=== PATIENT | male | born 1995 | race Caucasian/White ===

== ENCOUNTER 2018-05-28 08:45 | Emergency (ER) | payer SELFPAY ==
--- NOTE | 2018-05-28 09:09 | EDPHYS ---
Physician Documentation [facility] Name: Kel Avalos Age: 22 yrs Sex: Male : 1995 Arrival Date: 05/28/2018 Time: 08:49 Bed 16 Private MD: None, None ED Physician Ernesto Johnson HPI: 05/28 09:04 This 22 yrs old Male presents to ER via Ambulatory with complaints of Abscess.jr8 09:04 The patient presents with cellulitis of the left arm. Onset: The symptoms/episode jr8 began/occurred gradually, 2 day(s) ago, and became worse and became persistent. Possible cause(s): unknown. Associated signs and symptoms: The patient has no apparent associated signs or symptoms. Modifying factors: the symptoms are alleviated by nothing, the symptoms are aggravated by pressure, squeezing the lesion and expressing the contents, touching. Severity of symptoms: At their worst the symptoms were moderate, in the emergency department the symptoms are unchanged. The patient has experienced a previous episode. The patient has not recently seen a physician. Historical: - Allergies: 08:58 Advil; sg 08:58 Aleve; sg - Home Meds: 08:58 metoprolol tartrate 50 mg Oral tab 1 tab once daily [Active]; sg - PMHx: 08:58 Hypertension; sg - PSHx: 08:58 None; sg - Immunization history:: Adult Immunizations not up to date, Last tetanus immunization: unknown. - Social history:: Smoking status: Patient/guardian denies using tobacco. - Ebola Screening: : Patient negative for fever greater than or equal to 101.5 degrees Fahrenheit, and additional compatible Ebola Virus Disease symptoms Patient denies exposure to infectious person Patient denies travel to an Ebola-affected area in the 21 days before illness onset No symptoms or risks identified at this time. ROS: 09:04 Eyes: Negative for injury, pain, redness, and discharge, ENT: Negative for injury, jr8 pain, and discharge, Neck: Negative for injury, pain, and swelling, Cardiovascular: Negative for chest pain, palpitations, and edema, Respiratory: Negative for shortness of breath, cough, wheezing, and pleuritic chest pain, Abdomen/GI: Negative for abdominal pain, nausea, vomiting, diarrhea, and constipation, Back: Negative for injury and pain, MS/Extremity: Negative for injury and deformity, Neuro: Negative for headache, weakness, numbness, tingling, and seizure. 09:04 Skin: Positive for cellulitis, swelling, of the left arm. Exam: 09:04 Constitutional: This is a well developed, well nourished patient who is awake, alert, jr8 and in no acute distress. Cardiovascular: Regular rate and rhythm with a normal S1 and S2. No gallops, murmurs, or rubs. Normal PMI, no JVD. No pulse deficits. Respiratory: Lungs have equal breath sounds bilaterally, clear to auscultation and percussion. No rales, rhonchi or wheezes noted. No increased work of breathing, no retractions or nasal flaring. MS/ Extremity: Pulses equal, no cyanosis. Neurovascular intact. Full, normal range of motion. Neuro: Awake and alert, GCS 15, oriented to person, place, time, and situation. Cranial nerves II-XII grossly intact. Motor strength 5/5 in all extremities. Sensory grossly intact. Cerebellar exam normal. Normal gait. 09:04 Skin: Patient has approximately 7.5 cm of well demarcated erythema to left triceps region. Of that there is approximately 4 cm of induration with small necrotic center. No active draining or fluctuance . Vital Signs: 08:58 BP 140 / 97; Pulse 83; Resp 17 S; Temp 98.1(TE); Pulse Ox 98% on R/A; Weight 145.15 kg sg (R); Height 6 ft. 3 in. (190.50 cm) (R); Pain 4/10; 08:58 Body Mass Index 40.00 (145.15 kg, 190.50 cm) MDM: 09:00 Patient medically screened. [facility] 09:04 Data reviewed: vital signs, nurses notes, lab test result(s), and as a result, I will [facility] discharge patient. Data interpreted: Pulse oximetry: on room air is 98 %. Interpretation: normal. Counseling: I had a detailed discussion with the patient and/or guardian regarding: the historical points, exam findings, and any diagnostic results supporting the discharge/admit diagnosis, lab results, the need for outpatient follow up, a family practitioner, to return to the emergency department if symptoms worsen or persist or if there are any questions or concerns that arise at home. ED course: Discussed with patient that if the infection were to spread or if he were to have fevers, vomiting to come back for reevaluation and possible admission . 05/28 09:04 Order name: Wound Culture jr8 Administered Medications: No medications were administered Disposition: 14:44 Co-signature as Attending Physician, Ernesto Johnson MD I agree with the assessment and kdr plan of care. Disposition: 05/28/18 09:09 Discharged to Home. Impression: Cellulitis of left upper limb. - Condition is Stable. - Discharge Instructions: Cellulitis, Adult. - Prescriptions for Clindamycin HCl 300 mg Oral Capsule - take 1 capsule by ORAL route every 6 hours for 10 days; 40 capsule. Bactrim DS 800- 160 mg Oral Tablet - take 1 tablet by ORAL route every 12 hours for 10 days; 20 tablet. - Medication Reconciliation Form, Thank You Letter, Antibiotic Education, Prescription Opioid Use form. - Follow up: Private Physician; When: 5 - 6 days; Reason: Recheck today's complaints, Continuance of care, Re-evaluation by your physician. - Problem is new. - Symptoms have improved. Signatures: Dispatcher [employer] EDMS Sim Avelar, RN RN Ernesto Johnson MD MD [facility] Nito Chawla PA PA jr8 Jennifer Shafer RN RN ph Corrections: (The following items were deleted from the chart) 09:36 09:09 05/28/2018 09:09 Discharged to Home. Impression: Cellulitis of left upper limb. ph Condition is Stable. Forms are Medication Reconciliation Form, Thank You Letter, Antibiotic Education, Prescription Opioid Use. Follow up: Private Physician; When: 5 - 6 days; Reason: Recheck today's complaints, Continuance of care, Re-evaluation by your physician. Problem is new. Symptoms have improved. jr8
--- NOTE | 2018-05-28 09:09 | ER ---
Nurse's Notes [facility] Name: Kel Avalos Age: 22 yrs Sex: Male : 1995 Arrival Date: 05/28/2018 Time: 08:49 Bed 16 Private MD: None, None Diagnosis: Cellulitis of left upper limb Presentation: 05/28 08:56 Presenting complaint: Patient states: Thought a spider bit me on the back of my left sg arm, it had a bubble on it so i mashed it to get the stuff out. pt reports having had Staph infection prior to this, was lanced, and packed and had to take abx. Denies Fever, N/V/D. Transition of care: patient was not received from another setting of care. Onset of symptoms was May 28, 2018. Risk Assessment: Do you want to hurt yourself or someone else? Patient reports no desire to harm self or others. Initial Sepsis Screen: Does the patient meet any 2 criteria? No. Patient's initial sepsis screen is negative. Does the patient have a suspected source of infection? Yes: Skin breakdown/wound. Care prior to arrival: None. 08:56 Method Of Arrival: Ambulatory sg 08:56 Acuity: BRETT 4 sg Historical: - Allergies: 08:58 Advil; sg 08:58 Aleve; sg - Home Meds: 08:58 metoprolol tartrate 50 mg Oral tab 1 tab once daily [Active]; sg - PMHx: 08:58 Hypertension; sg - PSHx: 08:58 None; sg - Immunization history:: Adult Immunizations not up to date, Last tetanus immunization: unknown. - Social history:: Smoking status: Patient/guardian denies using tobacco. - Ebola Screening: : Patient negative for fever greater than or equal to 101.5 degrees Fahrenheit, and additional compatible Ebola Virus Disease symptoms Patient denies exposure to infectious person Patient denies travel to an Ebola-affected area in the 21 days before illness onset No symptoms or risks identified at this time. Screenin:00 Abuse screen: Denies threats or abuse. Denies injuries from another. Nutritional ph screening: No deficits noted. Tuberculosis screening: No symptoms or risk factors identified. Fall Risk None identified. Assessment: 09:00 General: Appears in no apparent distress. comfortable, obese, well groomed, Behavior is ph calm, cooperative, appropriate for age, Denies fever, feeling ill. Pain: Complains of pain in left tricep. Neuro: Level of Consciousness is awake, alert, obeys commands, Oriented to person, place, time, situation. Cardiovascular: Capillary refill < 3 seconds Patient's skin is warm and dry. Respiratory: Airway is patent Respiratory effort is even, unlabored, Respiratory pattern is regular, symmetrical. GI: No signs and/or symptoms were reported involving the gastrointestinal system. Derm: Skin is healthy with good turgor, Skin is pink, warm \T\ dry. Abscess located on left tricep is nickel sized, is hot to touch, is red, is raised, was lanced by patient prior to arrival. Musculoskeletal: Circulation, motion, and sensation intact. Range of motion: intact in all extremities. Vital Signs: 08:58 BP 140 / 97; Pulse 83; Resp 17 S; Temp 98.1(TE); Pulse Ox 98% on R/A; Weight 145.15 kg sg (R); Height 6 ft. 3 in. (190.50 cm) (R); Pain 4/10; 08:58 Body Mass Index 40.00 (145.15 kg, 190.50 cm) sg ED Course: 08:49 Patient arrived in ED. sb2 08:50 None, None is Private Physician. sb2 08:56 Jennifer Shafer, RN is Primary Nurse. ph 08:57 Triage completed. sg 08:57 Arm band placed on. sg 08:59 Nito Chawla PA is PHCP. jr8 08:59 Ernesto Johnson MD is Attending Physician. jr8 09:00 Patient has correct armband on for positive identification. Bed in low position. Call ph light in reach. Side rails up X 1. Pulse ox on. NIBP on. 09:30 No provider procedures requiring assistance completed. Patient did not have IV access ph during this emergency room visit. Administered Medications: No medications were administered Outcome: 09:09 Discharge ordered by . jr8 09:36 Patient left the ED. ph 09:36 Discharged to home ambulatory. ph 09:36 Condition: good 09:36 Discharge instructions given to patient, Instructed on discharge instructions, follow up and referral plans. medication usage, Demonstrated understanding of instructions, follow-up care, medications, Prescriptions given X 2. Addendum: 05/31/2018 08:48 Addendum: Culture Results: Positive wound culture. No further action required. Bacteria a a5 sensitive to prescribed antibiotic. Signatures: Sim Avelar, RN RN sg Chen Campos RN RN aa5 Nito Chawla PA PA jr8 Jennifer Shafer RN RN ph Merary Giron sb2
== END 2018-05-28 09:36 | disposition home or self-care (01) ==
LOC: ER 08:45
DX: L03.114 Cellulitis of left upper limb (principal); I10 Essential (primary) hypertension; Z88.6 Allergy status to analgesic agent
CPT/HCPCS: 87070; 87077; 87186; 87205; 99283

== ENCOUNTER 2018-05-30 16:19 | Emergency (ER) | payer SELFPAY ==
[2018-05-30] MEDS ORDERED: LIDOCAINE 1% MPF 5 ML VIAL ONE (16:53)
[2018-05-30 17:20] LABS: Absolute Lymphocytes (CBC) 2.2 K/uL (0.7-4.9); Absolute Monocytes 1.3 K/uL (0.1-1.3); Absolute Neutrophil 9.5 K/uL (1.8-8.0); Basophils % 0.3 % (0-1.3); Eosinophils % 0.7 % (0-4.4); Hematocrit 46.6 % (39.6-49.0); Lymphocytes % 16.5 % (15.3-44.8); Monocytes % 9.7 % (3.3-12.3); RBC Red Blood Cell Count 5.11 M/uL (4.33-5.43)
[2018-05-30 17:47] LABS: Albumin 4.3 g/dL (3.4-5.0); Bilirubin Total 0.8 mg/dL (0.2-1.0); Potassium 3.6 mmol/L (3.5-5.1); Protein, Total 8.5 g/dL (6.4-8.2)
[2018-05-30] MEDS ORDERED: BUPIVACAINE 0.5% PF 10 ML VIAL ONE (18:36)
--- NOTE | 2018-05-30 19:23 | EDPHYS ---
Physician Documentation [facility] Name: Kel Avalos Age: 22 yrs Sex: Male : 1995 Arrival Date: 05/30/2018 Time: 16:22 Bed 15 Private MD: None, None ED Physician Lobito Valiente HPI: 05/30 16:47 This 22 yrs old Male presents to ER via Ambulatory with complaints of Abscess.jmm 16:47 The patient presents with an abscess of the left arm and left tricep. Onset: The jmm symptoms/episode began/occurred gradually, 4 day(s) ago. Possible cause(s): unknown. Associated signs and symptoms: Pertinent positives: fever, swelling. This is a 22 year old male with a history of HTN that presents to the ED with left triceps pain and swelling approx 4 days ago. Patient states he had fever this yesterday. Patient is currently taking cipro and bactrim beginning 2 days ago. Patient states having decreased swelling but increased drainage from the wound. . Historical: - Allergies: 16:25 Advil; la1 16:25 Aleve; la1 - Home Meds: 16:40 metoprolol tartrate 50 mg Oral tab 1 tab once daily [Active]; jb4 - PMHx: 16:25 Hypertension; la1 - PSHx: 16:40 None; jb4 - Immunization history:: Adult Immunizations up to date. - Social history:: Smoking status: Patient/guardian denies using tobacco. - Ebola Screening: : No symptoms or risks identified at this time. ROS: 16:47 Constitutional: Negative for fever, chills, and weight loss, Cardiovascular: Negative jmm for chest pain, palpitations, and edema, Respiratory: Negative for shortness of breath, cough, wheezing, and pleuritic chest pain. 16:47 Skin: Positive for erythema, swelling. 16:47 All other systems are negative. Exam: 16:47 Constitutional: This is a well developed, well nourished patient who is awake, alert, jmm and in no acute distress. Head/Face: atraumatic. Chest/axilla: Normal chest wall appearance and motion. Cardiovascular: Regular rate and rhythm. No edema appreciated Respiratory: Normal respirations, no respiratory distress appreciated 16:47 Musculoskeletal/extremity: FROM appreciated to the left elbow, compartments soft, NVI. 16:47 Skin: Appearance: swelling. 16:47 Skin: swelling is appreciated to the left triceps region, TTP with surrounding erythema. 16:47 Neuro: Orientation: is normal, Mentation: is normal, Memory: is normal, Gait: is steady. 16:47 Psych: Behavior/mood is pleasant, cooperative. Vital Signs: 16:26 BP 130 / 97; Pulse 97; Resp 16; Temp 98.3(TE); Pulse Ox 97% on R/A; Weight 145.15 kg; la1 Height 6 ft. 7 in. (200.66 cm); 16:41 BP 165 / 99; Pulse 88; Resp 16; Pulse Ox 100% on R/A; Pain 0/10; jb4 18:38 BP 121 / 73; Pulse 83; Resp 18; Pulse Ox 100% on R/A; jb4 19:20 BP 128 / 72; Pulse 80; Resp 16; Pulse Ox 98% on R/A; ao 16:26 Body Mass Index 36.05 (145.15 kg, 200.66 cm) [facility] Procedures: 19:00 I \T\ D: Incision and drainage was performed for an abscess of the left tricep Prepped jmm with Betadine, Anesthetized with 5 ml's 1% Lidocaine. Incised with #11 blade. Drained large amount purulent fluid. Packed with sterile gauze, Dressing: sterile 4x4 gauze, the patient tolerated the procedure well. MDM: 16:44 Patient medically screened. [facility] 19:00 ED course: Patient is alert and non toxic in the ED. patient reports decreased jmm swelling. Patient given follow up for surgery reevaluation. patient given return precautions. Patient understood and agrees with the plan of care. . 19:20 Data reviewed: vital signs, nurses notes. Counseling: I had a detailed discussion with [facility] the patient and/or guardian regarding: the historical points, exam findings, and any diagnostic results supporting the discharge/admit diagnosis, the need for outpatient follow up, to return to the emergency department if symptoms worsen or persist or if there are any questions or concerns that arise at home. 05/30 16:45 Order name: CBC with Diff; Complete Time: 17:55 [facility] 05/30 16:45 Order name: CMP; Complete Time: 17:55 [facility] 05/30 16:45 Order name: Blood Culture Adult (2) [facility] 05/30 16:45 Order name: Procalcitonin; Complete Time: 18:46 [facility] 05/30 16:45 Order name: Saline Lock; Complete Time: 17:11 [facility] Administered Medications: 18:25 Drug: Lidocaine (1 %) 20 ml Volume: 20 ml; Route: Infiltration; jb4 19:25 Follow up: Response: No adverse reaction ao 18:36 Drug: Marcaine (0.5 %) 10 ml Volume: 10 ml; Route: Infiltration; jb4 19:24 Follow up: Response: No adverse reaction ao Disposition: 05/31 15:52 Co-signature as Attending Physician, Lobito Valiente MD. Disposition: 05/30/18 19:22 Discharged to Home. Impression: Abscess, Cellulitis. - Condition is Stable. - Discharge Instructions: Skin Abscess, Incision and Drainage, Care After. - Prescriptions for Ultracet 37.5- 325 mg Oral Tablet - take 2 tablet by ORAL route every 6 hours - for up to 5 days; do not exceed 8 tablets per day.; 20 tablet. - Work release form, Medication Reconciliation Form, Thank You Letter, Antibiotic Education, Prescription Opioid Use form. - Follow up: Grant Andrade MD; When: 2 - 3 days; Reason: Recheck today's complaints, Continuance of care, Re-evaluation by your physician. Signatures: Dispatcher [employer] EDMS Leland Pineda PA PA [facility] Shai Coates RN RN la1 Jose Enrique Camarena RN RN ao Bryson, James, RN RN jb4 Lobito Valiente MD MD Corrections: (The following items were deleted from the chart) 05/30 19:36 19:22 05/30/2018 19:22 Discharged to Home. Impression: Abscess; Cellulitis. Condition ao is Stable. Forms are Medication Reconciliation Form, Thank You Letter, Antibiotic Education, Prescription Opioid Use. Follow up: Grant Andrade; When: 2 - 3 days; Reason: Recheck today's complaints, Continuance of care, Re-evaluation by your physician. [facility] 21:09 16:47 This is a 22 year old male with a history of HTN that presents to the ED with [facility] left triceps pain and swelling approx 4 days ago. Patient states he had fever this yesterday. Patient is currently taking cipro and bactrim beginning 2 days ago. Patient states developing increased swelling. . [facility]
--- NOTE | 2018-05-30 19:23 | ER ---
Nurse's Notes [facility] Name: Kel Avalos Age: 22 yrs Sex: Male : 1995 Arrival Date: 05/30/2018 Time: 16:22 Bed 15 Private MD: None, None Diagnosis: Abscess;Cellulitis Presentation: 05/30 16:25 Presenting complaint: Patient states: abscess on LUE since Saturday, seen here given ABX, la1 still getting worse. Transition of care: patient was not received from another setting of care. Onset of symptoms was May 30, 2018. Risk Assessment: Do you want to hurt yourself or someone else? Patient reports no desire to harm self or others. Initial Sepsis Screen: Does the patient meet any 2 criteria? No. Patient's initial sepsis screen is negative. Does the patient have a suspected source of infection? No. Patient's initial sepsis screen is negative. Care prior to arrival: None. 16:25 Method Of Arrival: Ambulatory la1 16:25 Acuity: BRETT 3 la1 Historical: - Allergies: 16:25 Advil; la1 16:25 Aleve; la1 - Home Meds: 16:40 metoprolol tartrate 50 mg Oral tab 1 tab once daily [Active]; jb4 - PMHx: 16:25 Hypertension; la1 - PSHx: 16:40 None; jb4 - Immunization history:: Adult Immunizations up to date. - Social history:: Smoking status: Patient/guardian denies using tobacco. - Ebola Screening: : No symptoms or risks identified at this time. Screenin:32 Abuse screen: Denies threats or abuse. Nutritional screening: No deficits noted. jb4 Tuberculosis screening: No symptoms or risk factors identified. Fall Risk None identified. Assessment: 16:32 General: Appears in no apparent distress. comfortable, Behavior is calm, cooperative, jb4 appropriate for age. Pain: Complains of pain in left tricep Pain does not radiate. Pain currently is 1 out of 10 on a pain scale. at worst was 3 out of 10 on a pain scale. Quality of pain is described as burning, Pain began 2-3 days ago. Is continuous. Neuro: Level of Consciousness is awake, alert, obeys commands, Oriented to person, place, time, situation. Cardiovascular: Patient's skin is warm and dry. Respiratory: Airway is patent Respiratory effort is even, unlabored, Respiratory pattern is regular, symmetrical. GI: No signs and/or symptoms were reported involving the gastrointestinal system. : No signs and/or symptoms were reported regarding the genitourinary system. EENT: No signs and/or symptoms were reported regarding the EENT system. Derm: Skin is intact, Skin is pink, warm \T\ dry. Abscess located on left tricep is golf ball sized, has no drainage, is hot to touch, is red, is raised, Reports burning. Musculoskeletal: Circulation, motion, and sensation intact. 17:35 Reassessment: Patient appears in no apparent distress at this time. Patient and/or jb4 family updated on plan of care and expected duration. Pain level reassessed. Patient is alert, oriented x 3, equal unlabored respirations, skin warm/dry/pink. 18:38 Reassessment: Patient and/or family updated on plan of care and expected duration. Pain jb4 level reassessed. Patient is alert, oriented x 3, equal unlabored respirations, skin warm/dry/pink. provider in room for I\T\D. 19:20 General: Appears in no apparent distress. comfortable, Behavior is calm, cooperative, ao appropriate for age. Pain: Complains of pain in left arm. Neuro: Level of Consciousness is awake, alert, obeys commands, Oriented to person, place, time, situation, Moves all extremities. Cardiovascular: Capillary refill < 3 seconds Patient's skin is warm and dry. Respiratory: Airway is patent Respiratory effort is even, unlabored, Respiratory pattern is regular, symmetrical. GI: Abdomen is non-distended. : No signs and/or symptoms were reported regarding the genitourinary system. EENT: No signs and/or symptoms were reported regarding the EENT system. Derm: Skin is intact, Skin is pink, warm \T\ dry. Musculoskeletal: Circulation, motion, and sensation intact. Vital Signs: 16:26 BP 130 / 97; Pulse 97; Resp 16; Temp 98.3(TE); Pulse Ox 97% on R/A; Weight 145.15 kg; la1 Height 6 ft. 7 in. (200.66 cm); 16:41 BP 165 / 99; Pulse 88; Resp 16; Pulse Ox 100% on R/A; Pain 0/10; jb4 18:38 BP 121 / 73; Pulse 83; Resp 18; Pulse Ox 100% on R/A; jb4 19:20 BP 128 / 72; Pulse 80; Resp 16; Pulse Ox 98% on R/A; ao 16:26 Body Mass Index 36.05 (145.15 kg, 200.66 cm) la1 ED Course: 16:22 Patient arrived in ED. mr 16:22 None, None is Private Physician. mr 16:25 Triage completed. la1 16:26 Arm band placed on left wrist. la1 16:27 Grant Germain, RN is Primary Nurse. jb4 16:32 Leland Pineda PA is PHCP. [facility] 16:32 Lboito Valiente MD is Attending Physician. [facility] 16:32 Patient has correct armband on for positive identification. Bed in low position. Call jb4 light in reach. Pulse ox on. NIBP on. 16:55 Inserted saline lock: 22 gauge in right forearm, using aseptic technique. Blood jb4 collected. 16:55 Initial lab(s) drawn, by nc, sent to lab. First set of blood cultures drawn by nc. jb4 19:05 Report given to CHRISTOPHER Quispe. jb4 19:21 Grant Andrade MD is Referral Physician. [facility] 19:35 No provider procedures requiring assistance completed. IV discontinued, intact, ao bleeding controlled, No redness/swelling at site. Pressure dressing applied. Administered Medications: 18:25 Drug: Lidocaine (1 %) 20 ml Volume: 20 ml; Route: Infiltration; jb4 19:25 Follow up: Response: No adverse reaction ao 18:36 Drug: Marcaine (0.5 %) 10 ml Volume: 10 ml; Route: Infiltration; jb4 19:24 Follow up: Response: No adverse reaction ao Outcome: 19:22 Discharge ordered by . jmm 19:35 Discharged to home ambulatory. ao 19:35 Condition: stable 19:35 Discharge instructions given to patient, Instructed on discharge instructions, follow up and referral plans. Demonstrated understanding of instructions, follow-up care, medications, Prescriptions given X 1. 19:36 Patient left the ED. ao Signatures: Leland Pineda PA PA jmm Rivera, Maria mr Attema, Lee, RN RN la1 Jose Enrique Camarena RN RN ao Grant Germain RN RN jb4
== END 2018-05-30 19:36 | disposition home or self-care (01) ==
LOC: ER 16:19
PROC: 0J9F0ZZ Drainage of Left Upper Arm Subcutaneous Tissue and Fascia, Open Approach (ICD-10-PCS; principal; 2018-05-30)
DX: L03.114 Cellulitis of left upper limb (principal); L02.414 Cutaneous abscess of left upper limb; I10 Essential (primary) hypertension; Z88.6 Allergy status to analgesic agent
CPT/HCPCS: 36415; 80053; 84145; 85025; 87040; 99284